=== PATIENT | female | born 1950 | race Caucasian/White ===

== ENCOUNTER 2016-05-18 06:15 | Day surgery (SDC) | payer OTHER ==
[2016-05-18] MEDS ORDERED: CELECOXIB 100 MG CAPSULE PO ONE (06:31)
[2016-05-18] MEDS ORDERED: miSOPROStol 200 MCG TABLET ONE (06:32)
[2016-05-18] MEDS ORDERED: LACTATED RINGERS 1,000 ML IV ONE ×3 (07:16→08:20)
[2016-05-18] MEDS ORDERED: MIDAZOLAM 2 MG/2 ML VIAL IVP ONE (07:43)
[2016-05-18] MEDS ORDERED: ONDANSETRON 4 MG/2 ML VIAL IVP ONE (07:43)
[2016-05-18] MEDS ORDERED: DEXAMETHASONE 4 MG/ML VIAL IVP ONE (07:43)
[2016-05-18] MEDS ORDERED: fentaNYL 100 MCG/2 ML VIAL IVP ONE (07:43)
[2016-05-18] MEDS ORDERED: PROPOFOL 200 MG/20 ML VIAL IVP ONE (07:43)
[2016-05-18] MEDS ORDERED: LIDOCAINE-PF 2% 10 ML AMP SUBQ ONE (07:43)
== END 2016-05-18 06:16 | disposition home or self-care (01) ==
PROC: 0UDB8ZX Extraction of Endometrium, Via Natural or Artificial Opening Endoscopic, Diagnostic (ICD-10-PCS; 2016-05-18)
PROC: 0UB98ZX Excision of Uterus, Via Natural or Artificial Opening Endoscopic, Diagnostic (ICD-10-PCS; principal; 2016-05-18 07:30)
DX: N95.0 Postmenopausal bleeding (principal); N84.0 Polyp of corpus uteri; E66.9 Obesity, unspecified; Z68.41 Body mass index [BMI] 40.0-44.9, adult; M19.90 Unspecified osteoarthritis, unspecified site; G89.29 Other chronic pain; M54.9 Dorsalgia, unspecified; G47.30 Sleep apnea, unspecified
CPT/HCPCS: 58558; A9270; J7120

== ENCOUNTER 2016-11-01 10:20 | Outpatient (CLI) | payer MEDICARE | END 2016-11-01 10:21 | disposition home or self-care (01) | DX: E78.00 Pure hypercholesterolemia, unspecified (principal) ==

== ENCOUNTER 2017-04-15 15:55 | Emergency (ER) | payer MEDICARE ==
[2017-04-15 16:07] VITALS: BP 165/70
[2017-04-15 16:32] LABS: BILIRUBIN,URINE NEGATIVE (NEGATIVE)
[2017-04-15 16:35] LABS: UA w/ MICROSCOPIC CHARGE YES
--- NOTE | 2017-04-15 16:39 | ED Physician Documentation ---
PD HPI FEMALE - Stated complaint Stated Complaint: FEMALE - Chief complaint Chief Complaint: UTI - History obtained from History obtained from: Patient - History of Present Illness Timing - onset: How many days ago (2) Timing - duration: Days (2) Timing - details: Abrupt onset, Still present Associated symptoms: Fever (today), Urinary frequency. No: Vaginal discharge, Dysuria Contributing factors: No: Exposed to STD Similar symptoms before: Diagnosis (UTIs and pyelonephritis.) Recently seen: Not recently seen Review of Systems Constitutional: reports: Fever, Chills, Myalgias Nose: denies: Rhinorrhea / runny nose, Congestion Throat: denies: Sore throat Respiratory: denies: Cough GI: reports: Nausea. denies: Abdominal Pain, Vomiting, Diarrhea : reports: Frequency. denies: Dysuria, Discharge Skin: denies: Rash, Lesions Musculoskeletal: reports: Back pain. 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 - Present Medications Home Medications: Ambulatory Orders Medication Instructions Recorded Confirmed Ascorbic Acid [Vitamin C] 1,000 mg PO DAILY 05/18/16 05/18/16 Cholecalciferol (Vitamin D3) 1,000 unit PO DAILY 05/18/16 05/18/16 [Vitamin D3] Sulfamethox/Trimeth 800/160 1 each PO BID #14 tablet 04/15/17 [Bactrim Ds 800/160] - Allergies Allergies/Adverse Reactions: Allergies Allergy/AdvReac Type Severity Reaction Status Date / Time nitrofurantoin Allergy Rash Verified 04/15/17 16:05 - Social History Does the pt smoke?: No Smoking Status: Never smoker Does the pt drink ETOH?: No Does the pt have substance abuse?: No - Immunizations Immunizations are current?: Yes - POLST Patient has POLST: No PD ED PE NORMAL - Vitals Vital signs reviewed: Yes - General General: Alert and oriented X 3, No acute distress, Well developed/nourished - HEENT HEENT: Moist mucous membranes, Pharynx benign - Neck Neck: Supple, no meningeal sign, No adenopathy - Cardiac Cardiac: RRR, No murmur - Respiratory Respiratory: Clear bilaterally - Abdomen Abdomen: Normal bowel sounds, Soft, Non tender, Non distended, No organomegaly - Female Female : Deferred - Rectal Rectal: Deferred - Back Back: No spinal TTP, Other (moderate right CVA tender to percussion.) - Derm Derm: Normal color, No rash Results - Vitals Vitals: Oxygen O2 Source Room air - Labs Labs: Microbiology 04/15/17 16:08 Urine Culture - Final Urine,Clean Catch Escherichia Coli Laboratory Tests 04/15/17 04/15/17 04/15/17 16:08 17:49 17:49 WBC 9.3 RBC 5.33 Hgb 15.5 Hct 46.1 MCV 86.5 MCH 29.1 MCHC 33.7 RDW 13.6 Plt Count 281 MPV 7.7 L Neut # 7.4 H Lymph # 1.2 L [place] # 0.6 Eos # 0.0 Baso # 0.0 Absolute Nucleated RBC 0.00 Nucleated RBC % 0.0 ESR 2 Sodium Potassium Chloride Carbon Dioxide Anion Gap BUN Creatinine Estimated GFR (MDRD) Glucose Calcium Total Bilirubin AST ALT Alkaline Phosphatase C-Reactive Protein Total Protein Albumin Globulin Albumin/Globulin Ratio Lipase Urine Color YELLOW Urine Clarity CLEAR Urine pH 6.0 Ur Specific [place] 1.015 Urine Protein NEGATIVE Urine Glucose (UA) NEGATIVE Urine Ketones TRACE Urine Occult Blood NEGATIVE Urine Nitrite NEGATIVE Urine Bilirubin NEGATIVE Urine Urobilinogen 0.2 (NORMAL) Ur Leukocyte Esterase TRACE H Urine RBC None Seen Urine WBC >25 H Ur Squamous Epith Cells MANY Squamous H Urine Bacteria Moderate H Ur Microscopic Review INDICATED Urine Culture Comments NOT INDICATED 04/15/17 17:49 WBC RBC Hgb Hct MCV MCH MCHC RDW Plt Count MPV Neut # Lymph # [place] # Eos # Baso # Absolute Nucleated RBC Nucleated RBC % ESR Sodium 138 Potassium 3.8 Chloride 96 L Carbon Dioxide 28 Anion Gap 14.0 H BUN 10 Creatinine 0.6 Estimated GFR (MDRD) 99 Glucose 103 H Calcium 9.4 Total Bilirubin 1.5 H AST 25 ALT 27 Alkaline Phosphatase 98 C-Reactive Protein 4.3 H Total Protein 8.1 Albumin 4.5 Globulin 3.6 Albumin/Globulin Ratio 1.3 Lipase 29 Urine Color Urine Clarity Urine pH Ur Specific [place] Urine Protein Urine Glucose (UA) Urine Ketones Urine Occult Blood Urine Nitrite Urine Bilirubin Urine Urobilinogen Ur Leukocyte Esterase Urine RBC Urine WBC Ur Squamous Epith Cells Urine Bacteria Ur Microscopic Review Urine Culture Comments PD MEDICAL DECISION MAKING - ED course Complexity details: reviewed results (WBC and ESR are normal. UA is moderately positive. Lab says culture not indicated but I ordered one in particular as the screen indicators are wrong about this one. ), considered differential (has back pain and fever with minimal UTI findings. However, CT normal, WBC and ESR are normal, no neuro symptoms and pain is really CVA area and not spine per se. ), d/w patient Departure - Departure Disposition: Home, Self Care Clinical Impression: Back pain Qualifiers: Back pain location: low back pain Chronicity: acute Back pain laterality: bilateral Sciatica presence: without sciatica Qualified Code(s): M54.5 - Low back pain Fever Qualifiers: Fever type: unspecified Qualified Code(s): R50.9 - Fever, unspecified Condition: Stable Record reviewed to determine appropriate education?: Yes Follow-Up: Adina Wise PA-C [Primary Care Provider] - Prescriptions: Sulfamethox/Trimeth 800/160 [Bactrim Ds 800/160] 1 each PO BID #14 tablet Comments: Your urine test does not signify an obvious infection, but does have some white cells that could suggest it. Your back pain and fever may be from other reason. However the CT scan, blood count, and other infection markers are good, so consider viral illness or such. Drink lots of fluids and use Tylenol every 4 hours as needed for fevers and pains. If urinary symptoms develop more convicingly, then add Bactrim antibiotic as prescribed. Recheck if other symptoms develop to suggest other cause (such as rash, diarrhea, cough, etc). Discharge Date/Time: 04/15/17 18:56
[2017-04-15 16:47] LABS: UR CULTURE IF IND NOT INDICATED; WBC,URINE >25 /HPF (0-5)
[2017-04-15] MEDS ORDERED: ACETAMINOPHEN 325 MG TABLET PO STA (17:45)
[2017-04-15 18:06] LABS: BASOPHILS % (AUTO) 0.5 %; EOSINOPHILS % (AUTO) 0.4 %; HCT - HEMATOCRIT 46.1 % (37.0-47.0); HGB - HEMOGLOBIN 15.5 g/dL (12.0-16.0); LYMPHOCYTES # (AUTO) 1.2 10^3/uL (1.5-3.5); MEAN CORPUSCULAR HEMOGLOBIN 29.1 pg (27.0-31.0); MEAN CORPUSCULAR HGB CONC 33.7 g/dL (32.0-36.0); MEAN CORPUSCULAR VOLUME 86.5 fL (81.0-99.0); MEAN PLATELET VOLUME 7.7 fL (7.9-10.8); MONOCYTES # (AUTO) 0.6 10^3/uL (0.0-1.0); MONOCYTES % (AUTO) 6.3 %; NEUTROPHILS # (AUTO) 7.4 10^3/uL (1.5-6.6); NEUTROPHILS % (AUTO) 79.8 %; RED BLOOD COUNT 5.33 10^6/uL (4.20-5.40); RED CELL DISTRIBUTION WIDTH 13.6 % (12.0-15.0); UNCORRECTED WHITE BLOOD COUNT 9.3 x10^3/uL; WHITE BLOOD COUNT 9.3 x10^3/uL (4.8-10.8)
--- NOTE | 2017-04-15 18:23 | CT Report ---
EXAM: CT ABDOMEN AND PELVIS (CT KUB) EXAM DATE: 04/15/2017 05:44 PM. CLINICAL HISTORY: Right flank pain. COMPARISONS: Contrast-enhanced CT abdomen/pelvis 09/06/2012. TECHNIQUE: Routine axial helical CT imaging was performed through the abdomen and pelvis without IV c ontrast. Reconstructions: Coronal and sagittal. In accordance with CT protocol optimization, one or more of the following dose reduction techniques w ere utilized for this exam: automated exposure control, adjustment of mA and/or KV based on patient s ize, or use of iterative reconstructive technique. FINDINGS: Lung Bases: Unremarkable. Right Kidney/Ureter: No stones, hydronephrosis, or hydroureter. No perinephric fat stranding. Left Kidney/Ureter: No stones, hydronephrosis, or hydroureter. No perinephric fat stranding. Other Solid Organs: The liver is enlarged, the right hepatic lobe measuring approximately 20 cm in le ngth. Diffuse low-attenuation of the hepatic parenchyma, indicating steatosis. Noncontrast images of the solid organs are otherwise grossly unremarkable. Gallbladder/Bile Ducts: Unremarkable. No visual stones or biliary ductal dilatation. Peritoneal Cavity: Laparoscopic adjustable gastric band in place, with port in the subcutaneous fat o f the left anterior abdominal wall. The bowel is grossly unremarkable, without evident focal wall thi ckening or adjacent mesenteric fat stranding to suggest acute inflammatory process, or evidence of brandie wel obstruction. The appendix is normal. No free fluid, pneumoperitoneum, or elizabeth adenopathy. Pelvic Organs: No bladder stones or wall thickening. Noncontrast images of the uterus and ovaries are unremarkable. Vasculature: Mild atherosclerotic calcifications within the aorta and iliac arteries. Bones: Moderate to severe facet arthropathy lower lumbar spine, with associated minimal anterolisthes is of L4 on L5. No acute bony abnormality. Other: Increased, moderate-sized fat-containing umbilical hernia, without evidence for inflammation. IMPRESSION: 1. No calculi or evidence of obstruction along the genitourinary tracts. Within the limits of noncont rast examination, no alternate acute process identified to explain right flank pain. 2. Enlarged, steatotic liver. 3. Interval increased size of fat-containing umbilical hernia. No CT evidence for inflammation. [facility] Referring Provider Line: [phone] SITE ID: [id number]
[2017-04-15 18:27] LABS: ALBUMIN/GLOBULIN RATIO 1.3 (1.0-2.2); BILIRUBIN,TOTAL 1.5 mg/dL (0.2-1.0); CALCIUM 9.4 mg/dL (8.5-10.3); CREATININE 0.6 mg/dL (0.4-1.0); POTASSIUM 3.8 mmol/L (3.5-5.0); TOTAL PROTEIN 8.1 g/dL (6.7-8.2)
== END 2017-04-15 18:56 | disposition home or self-care (01) ==
LOC: ED 15:55
DX: R50.9 Fever, unspecified (principal); M54.5 Low back pain; G47.30 Sleep apnea, unspecified
CPT/HCPCS: 36415; 74176; 80053; 81001; 83690; 85025; 85651; 86140; 87077; 87086; 87181; 99283; A9270; 81003

== ENCOUNTER 2017-11-02 10:00 | Outpatient (CLI) | payer MEDICARE | END 2017-11-02 10:01 | disposition home or self-care (01) | LOC: LAB.F 10:00 | PROVIDERS: ATTEND Internal Medicine | DX: N30.00 Acute cystitis without hematuria (principal) | CPT/HCPCS: 87086 ==

== ENCOUNTER 2018-05-03 09:56 | Outpatient (CLI) | payer MEDICARE ==
--- NOTE | 2018-05-04 10:12 | DEXA Report ---
Reason: ASYMPTOMATIC MENOPAUSAL STATE Procedure Date: 05/03/2018 Accession Number: [id number] / [id number] Procedure: DEX - Dexa Spine and/or Hip CPT Code: FULL RESULT: EXAM: Dexa Spine and/or Hip DATE: 05/03/2018 10:21 AM CLINICAL HISTORY: ASYMPTOMATIC MENOPAUSAL STATE TECHNIQUE: Dual energy x-ray absorptiometry (DXA) was performed on a [employer]. Regions measured are the AP Spine, femoral neck, and if needed forearm. COMPARISON: None. In accordance with the International Society for Clinical Densitometry (ISCD) guidelines, data from previous exams may be reanalyzed using current recommendations and techniques. This is done to allow a more accurate basis for comparison with the current study. FINDINGS: The data for the lumbar spine is as follows: BMD (g/cm/cm) T-SCORE Z-SCORE REGION L1 0.995 -1.1 0.0 L2 1.098 -0.8 0.3 L3 1.179 -0.2 1.0 L4 1.258 0.5 1.6 TOTAL 1.141 -0.3 0.8 NOTE: All evaluable vertebrae are used for classification The data for the hip is as follows: BMD (g/cm/cm) T-SCORE Z-SCORE REGION Neck 0.897 -1.0 0.3 TOTAL 0.868 -1.1 -0.1 NOTE: The femoral neck or total proximal femur, whichever is lowest, is used for classification. IMPRESSION: THE WHO CLASSIFICATION BASED ON THE INTERNATIONAL REFERENCE STANDARD IS OSTEOPENIA. THE FRACTURE RISK IS INCREASED. RECOMMENDATION: Patients with diagnosis of osteoporosis or osteopenia should have regular bone mineral density assessment. For those eligible for Medicare, routine testing is allowed once every 2 years. Testing frequency can be increased for patients who have rapidly progressing disease or for those who are receiving medical therapy to restore bone mass. COMMENT: World Health Organization (WHO) definitions for osteoporosis and osteopenia: NORMAL BMD: T-score at -1.0 or higher, fracture risk is low OSTEOPENIA BMD: T-score between -1.0 and -2.5, fracture risk is increased. OSTEOPOROSIS BMD: T-score at -2.5 or lower, fracture risk is high. National Osteoporosis Foundation recommends: 1. Obtain adequate dietary calcium (at least 1200 mg per day) and vitamin D (400-800 international units per day). 2. Participate, as appropriate, in regular weightbearing and muscle-strengthening exercise. 3. Avoid tobacco use and reduce alcohol and caffeine intake. 4. For more detailed information see the website at www.NOF.org.
== END 2018-05-03 09:57 | disposition home or self-care (01) ==
LOC: DI 09:56
PROVIDERS: ATTEND Internal Medicine
DX: M85.89 Other specified disorders of bone density and structure, multiple sites (principal); Z78.0 Asymptomatic menopausal state
CPT/HCPCS: 77080

== ENCOUNTER 2019-05-06 08:04 | Outpatient (CLI) | payer MEDICARE | END 2019-05-06 23:59 | disposition home or self-care (01) | LOC: LAB.R 08:04 | PROVIDERS: ATTEND Physician Assistant Medical | DX: N30.90 Cystitis, unspecified without hematuria (principal) | CPT/HCPCS: 87086 ==

== ENCOUNTER 2020-11-16 08:00 | Outpatient (CLI) | payer MEDICARE ==
[2020-11-16 15:14] LABS: BASOPHILS # (AUTO) 0.1 10^3/uL (0.0-0.1); BASOPHILS % (AUTO) 0.9 %; EOSINOPHILS # (AUTO) 0.1 10^3/uL (0.0-0.7); EOSINOPHILS % (AUTO) 2.3 %; HCT - HEMATOCRIT 47.7 % (37.0-47.0); HGB - HEMOGLOBIN 15.3 g/dL (12.0-16.0); LYMPHOCYTES # (AUTO) 1.6 10^3/uL (1.5-3.5); LYMPHOCYTES % (AUTO) 28.2 %; MEAN CORPUSCULAR HEMOGLOBIN 29.1 pg (27.0-31.0); MEAN CORPUSCULAR HGB CONC 32.1 g/dL (32.0-36.0); MEAN CORPUSCULAR VOLUME 90.9 fL (81.0-99.0); MEAN PLATELET VOLUME 10.3 fL (7.9-10.8); MONOCYTES # (AUTO) 0.4 10^3/uL (0.0-1.0); MONOCYTES % (AUTO) 7.3 %; NEUTROPHILS # (AUTO) 3.5 10^3/uL (1.5-6.6); NEUTROPHILS % (AUTO) 61.1 %; PLT - PLATELET COUNT 296 10^3/uL (130-450); RED BLOOD COUNT 5.25 10^6/uL (4.20-5.40); RED CELL DISTRIBUTION WIDTH 13.3 % (12.0-15.0); WHITE BLOOD COUNT 5.8 x10^3/uL (4.8-10.8)
[2020-11-16 15:57] LABS: ALBUMIN 4.2 g/dL (3.2-5.5); ALBUMIN/GLOBULIN RATIO 1.4 (1.0-2.2); ALKALINE PHOSPHATASE 79 IU/L (42-121); ALT ALANINE AMINOTRANSFERASE 22 IU/L (10-60); AST ASPARTATE AMINOTRANSFERASE 19 IU/L (10-42); BILIRUBIN,TOTAL 1.2 mg/dL (0.2-1.0); BUN - BLOOD UREA NITROGEN 18 mg/dL (6-20); CALCIUM 9.3 mg/dL (8.5-10.3); CARBON DIOXIDE - CO2 31 mmol/L (21-32); CHLORIDE 103 mmol/L (101-111); CHOLESTEROL 200 mg/dL; CREATININE 0.6 mg/dL (0.4-1.0); GFR - MDRD 99 (>89); GLUCOSE 92 mg/dL (70-100); HDL CHOLESTEROL 66 mg/dL; LDL CHOLESTEROL,CALCULATED 118 mg/dL; LDL/HDL RATIO 1.8 (<4.4); POTASSIUM 4.1 mmol/L (3.5-5.0); SODIUM 143 mmol/L (135-145); TOTAL PROTEIN 7.1 g/dL (6.7-8.2); TRIGLYCERIDES 78 mg/dL; VLDL CHOLESTEROL 16 mg/dL
[2020-11-16 16:07] LABS: FERRITIN 37.6 ng/mL (11.0-306.8)
== END 2020-11-16 08:01 | disposition home or self-care (01) ==
LOC: LAB.S 08:00
PROVIDERS: ATTEND Internal Medicine
DX: I10 Essential (primary) hypertension (principal); E78.00 Pure hypercholesterolemia, unspecified; Z93.4 Other artificial openings of gastrointestinal tract status
CPT/HCPCS: 36415; 80053; 80061; 82607; 82728; 83721; 85025

== ENCOUNTER 2020-12-13 08:00 | Outpatient (CLI) | payer MEDICARE ==
[2020-12-13 18:45] LABS: KETONES,URINE (UA) NEGATIVE (NEGATIVE)
[2020-12-13 18:46] LABS: CLARITY,URINE HAZY (CLEAR)
[2020-12-13 18:49] LABS: BILIRUBIN,URINE COLOR INTERFERENCE (NEGATIVE)
[2020-12-13 18:53] LABS: BACTERIA,URINE Few /HPF (None Seen); SQUAMOUS EPITHELIAL CELL,UR NONE SEEN (<= Few); WBC,URINE >25 /HPF (0-5)
== END 2020-12-13 23:59 | disposition home or self-care (01) ==
LOC: LAB.S 08:00
PROVIDERS: ATTEND Physician Assistant
DX: R39.9 Unspecified symptoms and signs involving the genitourinary system (principal)
CPT/HCPCS: 81001; 87086

== ENCOUNTER 2021-01-06 09:54 | Outpatient (CLI) | payer MEDICARE | END 2021-01-06 23:59 | disposition home or self-care (01) | LOC: LAB.S 09:54 | PROVIDERS: ATTEND Physician Assistant Medical | DX: R30.0 Dysuria (principal) | CPT/HCPCS: 87086 ==

== ENCOUNTER 2021-04-20 19:31 | Emergency (ER) | payer MEDICARE ==
--- NOTE | 2021-04-20 20:49 | ED Physician Documentation ---
History of Present Illness - Stated complaint Stated Complaint: GLF - Chief complaint Chief Complaint: Trauma Hd/Nk - History obtained from History obtained from: Patient, Family - History of Present Illness Timing: Today Pain level max: 4 Pain level now: 3 - Additonal information Additional information: Patient is a 70-year-old female who presents to the emergency department after a ground-level fall earlier today. She was walking down a driveway that was covered in snow and ice when she slipped and fell striking her head. No loss of consciousness but did have altered mental status after the event. Having slight pain in her head currently. No neck or back pain. No numbness or tingling. She states that she is having some discomfort on her sacrum. Review of Systems Constitutional: denies: Fever, Chills GI: denies: Vomiting, Diarrhea : denies: Dysuria Skin: denies: Rash Musculoskeletal: denies: Neck pain, Back pain Neurologic: reports: Headache. 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 - Present Medications Home Medications: Ambulatory Orders Medication Instructions Recorded Confirmed Ascorbic Acid [Vitamin C] 1,000 mg PO DAILY 05/18/16 05/18/16 Cholecalciferol (Vitamin D3) 1,000 unit PO DAILY 05/18/16 05/18/16 [Vitamin D3] Sulfamethox/Trimeth 800/160 1 each PO BID #14 tablet 04/15/17 [Bactrim Ds 800/160] - Allergies Allergies/Adverse Reactions: Allergies Allergy/AdvReac Type Severity Reaction Status Date / Time nitrofurantoin Allergy Rash Verified 04/15/17 16:05 - Social History Does the pt smoke?: No Smoking Status: Never smoker Does the pt drink ETOH?: No Does the pt have substance abuse?: No - Immunizations Immunizations are current?: Yes - POLST Patient has POLST: No PD ED PE NORMAL - Vitals Vital signs reviewed: Yes - General General: Alert and oriented X 3, No acute distress, Well developed/nourished - HEENT HEENT: Atraumatic, PERRL, Ears normal, Moist mucous membranes, Pharynx benign - Neck Neck: Supple, no meningeal sign, No bony TTP - Cardiac Cardiac: RRR, Strong equal pulses - Respiratory Respiratory: No respiratory distress, Clear bilaterally - Abdomen Abdomen: Soft, Non tender, Non distended - Back Back: No CVA TTP, No spinal TTP, Other (no C/T/L spine. no sacral tenderness. ) - Derm Derm: Warm and dry - Extremities Extremities: No deformity, Normal ROM s pain - Neuro Neuro: Alert and oriented X 3, didactic program in dietetics director 2-12 intact, No motor deficit, No sensory deficit, Normal speech Eye Opening: Spontaneous Motor: Obeys Commands Verbal: Oriented GCS Score: 15 - Psych Psych: Normal mood, Normal affect Results - Vitals Vitals: Vital Signs - 24 hr 04/20/21 04/20/21 04/20/21 19:35 20:28 21:09 Temperature 36.6 C Heart Rate 90 88 91 Respiratory 16 14 Rate Blood Pressure 179/83 H 143/82 H O2 Saturation 98 100 99 Oxygen O2 Source Room air - Rads (name of study) CT head Radiology: Final report received, EMP read contemporaneously, See rad report (no acute abnormalities) Ct cspine Radiology: Final report received, EMP read contemporaneously, See rad report (no acute abnormalities) PD MEDICAL DECISION MAKING - ED course Complexity details: reviewed results, re-evaluated patient, considered differential, d/w patient ED course: 70-year-old female status post ground-level fall. No acute findings on head CT or cervical spine CT. No neurological deficits. Declines an x-ray of the sacrum/coccyx. We will continue supportive care. We will have her follow-up with her doctor for further care. Patient counseled regarding signs and symptoms for which I believe and urgent re-evaluation would be necessary. Patient with good understanding of and agreement to plan and is comfortable going home at this time This document was made in part using voice recognition software. While efforts are made to proofread this document, sound alike and grammatical errors may occur. Departure - Departure Disposition: 01 Home, Self Care Clinical Impression: Thyroid nodule Closed head injury Qualifiers: Encounter type: initial encounter Qualified Code(s): S09.90XA - Unspecified injury of head, initial encounter Coccyx contusion Qualifiers: Encounter type: initial encounter Qualified Code(s): S30.0XXA - Contusion of lower back and pelvis, initial encounter Condition: Good Instructions: ED Contusion Sacrum Coccyx, ED Head Injury Closed Follow-Up: Edward Obrien MD [Primary Care Provider] - Within 1 week Comments: Please follow-up with your doctor for further care. Your head CT does not show any acute abnormalities today. Your cervical spine CT does show 2 thyroid nodules. It is recommended you have a thyroid ultrasound for characterization. This can be ordered by your doctor. You can use Tylenol as needed for pain at home. You do not need to wake her up. Return if she worsens including worsening headaches, vomiting or other changes. Thyroid nodules noted. 1.5 cm nodule in the right lobe and 1.4 cm nodule and left lobe. Recommend thyroid ultrasound. Discharge Date/Time: 04/20/21 21:10
--- NOTE | 2021-04-20 20:52 | CT Report ---
PROCEDURE: HEAD WO INDICATIONS: fall, head/neck injury TECHNIQUE: Noncontrast 4.5 mm thick angled axial sections acquired from the foramen magnum to the vertex. For r adiation dose reduction, the following was used: automated exposure control, adjustment of mA and/or kV according to patient size. COMPARISON: None FINDINGS: Image quality: Excellent. CSF spaces: Basal cisterns are patent. No extra-axial fluid collections. The ventricles are symmet hayley in size and shape. Brain: No intracranial bleeds or masses. There is cerebral volume loss for age, with resultant vent ricular and sulcal prominence. There are periventricular and deep white matter chronic small vessel ischemic changes. There is intracranial internal carotid artery atherosclerosis. Pituitary tissue fl attening into the inferior margin of the sella compatible with "empty sella". Skull and face: Calvarium and visualized facial bones appear intact, without suspicious lesions. Sinuses: Visualized sinuses and mastoids are clear. IMPRESSION: No acute intracranial disease process. Reviewed by: Kaylah Vallejo MD, PhD on 04/20/2021 8:51 PM PST Approved by: Kaylah Vallejo MD, PhD on 04/20/2021 8:51 PM PST Station ID: [id number]
--- NOTE | 2021-04-20 20:56 | CT Report ---
PROCEDURE: CERVICAL SPINE WO INDICATIONS: fall, head/neck injury TECHNIQUE: Noncontrast 3 mm thick sections acquired from the skull base to the T4 level. Sagittal and coronal r eformats were then constructed. For radiation dose reduction, the following was used: automated exp osure control, adjustment of mA and/or kV according to patient size. COMPARISON: None. FINDINGS: Image quality: Excellent. Bones: No fractures or dislocations. Visualized superior ribs are intact. Spine degenerative disc d isease and facet arthropathy are noted. Soft tissues: Prevertebral soft tissues are normal in thickness. No paravertebral hematomas. No ap ical pneumothoraces. Thyroid nodules noted. 1.5 cm nodule in the right lobe and 1.4 cm nodule and lef t lobe. IMPRESSION: 1. No fracture. No acute osseous lesion. If there is continued clinical concern for pathology, then M RI should be considered for further evaluation. 2. Thyroid nodules. Recommend thyroid ultrasound for definitive characterization when clinically feas ible. Reviewed by: Kaylah Vallejo MD, PhD on 04/20/2021 8:55 PM PST Approved by: Kaylah Vallejo MD, PhD on 04/20/2021 8:55 PM PST Station ID: [id number]
[2021-04-20 21:10] VITALS: BP 143/82
== END 2021-04-20 21:10 | disposition home or self-care (01) ==
LOC: ED 19:31
DX: S09.90XA Unspecified injury of head, initial encounter (principal); S30.0XXA Contusion of lower back and pelvis, initial encounter; W00.0XXA Fall on same level due to ice and snow, initial encounter; Y93.01 Activity, walking, marching and hiking; Y92.008 Other place in unspecified non-institutional (private) residence as the place of occurrence of the external cause; E04.2 Nontoxic multinodular goiter
CPT/HCPCS: 99283; 99284

== ENCOUNTER 2021-05-07 08:00 | Outpatient (CLI) | payer MEDICARE ==
[2021-05-07 19:41] LABS: FECAL OCCULT BLOOD (FIT) NEGATIVE (NEGATIVE)
== END 2021-05-07 23:59 | disposition home or self-care (01) ==
LOC: LAB.R 08:00
PROVIDERS: ATTEND Internal Medicine
DX: Z12.11 Encounter for screening for malignant neoplasm of colon (principal)
CPT/HCPCS: 82274

== ENCOUNTER 2021-05-13 08:48 | Outpatient (CLI) | payer MEDICARE ==
--- NOTE | 2021-05-13 19:13 | Ultrasound Report ---
PROCEDURE: Head or Neck Soft Tissue INDICATIONS: THYROID NODULE TECHNIQUE: Real-time scanning was performed of the thyroid gland, with image documentation. COMPARISON: None FINDINGS: Right: Thyroid lobe measures 5.2 x 2.0 x 2.0 cm, and is homogeneous in echotexture. Left: Thyroid lobe measures 4.7 x 2.0 x 1.7 cm, and is homogenous in echotexture. Isthmus: 5.1 mm thick. Nodule number: 1 Location: Right inferior Size: 0.5 x 1.2 x 1.0 cm. Composition: Solid Echogenicity: Isoechoic Shape: wider than tall. Margins: smooth Echogenic foci: Microcalcification Total points: 4 ACR TI-RADS category: TI-RADS 4 Nodule number: 2 Location: Right inferior Size: 1.0 x 0.9 x 0.9 cm. Composition: Solid Echogenicity: hypoechoic Shape: wider than tall. Margins: smooth Echogenic foci: None Total points: 4 ACR TI-RADS category: TI-RADS 4 Nodule number: 3 Location: Right mid Size: 0.7 x 0.5 x 0.7cm. Composition: solid Echogenicity: isoechoic Shape: wider than tall. Margins: smooth Echogenic foci: None Total points: 4 ACR TI-RADS category: TI-RADS 4 Nodule number: 4 Location: Left inferior Size: 1.7 x 1.7 x 1.3 cm. Composition: solid Echogenicity: isoechoic Shape: wider than tall. Margins: smooth Echogenic foci: Macrocalcifications Total points: 4 ACR TI-RADS category: TI-RADS 4 Nodule number: 5 Location: Left mid Size: 1.0 x 0.8 x 0.7cm. Composition: solid Echogenicity: Hypoechoic Shape: wider than tall. Margins: smooth Echogenic foci: None Total points: 4 ACR TI-RADS category: TI-RADS 4 Nodule number: 6 Location: Left mid Size: 0.6 x 0.4 x 0.6cm. Composition: solid Echogenicity: Hypoechoic Shape: wider than tall. Margins: smooth Echogenic foci: None Total points: 4 ACR TI-RADS category: TI-RADS 4 IMPRESSION: Multiple thyroid nodules as listed. Recommend ultrasound guided biopsy of nodule #4 and continued follow-up of other nodules. ACR TI-RADS definitions and recommendations: TI-RADS 1 (benign): 0 points. FNA not needed. TI-RADS 2 (not suspicious): 2 points. FNA not needed. TI-RADS 3 (mildly suspicious): 3 points. "FNA if 2.5 cm or larger, follow up if 1.5 cm or larger (at 1, 3, and 5 years). TI-RADS 4 (moderately suspicious): 4-6 points. "FNA if 1.5 cm or larger, follow up if 1 cm or larger (at 1, 2, 3, and 5 years). TI-RADS 5 (highly suspicious): 7 points or more. "FNA if 1 cm or larger, follow up if 0.5 cm or larger (every year for 5 years). Reviewed by: Chuy rFye MD on 05/13/2021 7:12 PM PST Approved by: Chuy Frye MD on 05/13/2021 7:12 PM PST Station ID: [id number]
== END 2021-05-13 08:49 | disposition home or self-care (01) ==
LOC: DI 08:48
PROVIDERS: ATTEND Internal Medicine
DX: E04.2 Nontoxic multinodular goiter (principal)

== ENCOUNTER 2021-06-22 11:49 | Outpatient (CLI) | payer MEDICARE ==
--- NOTE | 2021-06-22 14:28 | XRAY Report ---
PROCEDURE: Thoracic Spine 3 View INDICATIONS: XRAY TECHNIQUE: 3 views of the thoracic spine were acquired. COMPARISON: None. FINDINGS: Bones: No fractures or dislocations. No suspicious bony lesions. 12 pairs of ribs are noted, and a ppear intact where visualized. Soft tissues: No paravertebral stripe thickening. IMPRESSION: No evidence acute bony abnormality of the thoracic spine. If clinical suspicion and/or symptoms persist, further assessment with repeat plain films or advanced imaging (e.g., CT, MRI, or bone scan) may be helpful for further assessment. Reviewed by: Pritesh Hudson MD on 06/22/2021 2:27 PM PST Approved by: Pritesh Hudson MD on 06/22/2021 2:27 PM PST Station ID: [id number]
== END 2021-06-22 11:50 | disposition home or self-care (01) ==
LOC: DI.S 11:49
PROVIDERS: ATTEND Internal Medicine
DX: M54.6 Pain in thoracic spine (principal)

== ENCOUNTER 2021-08-10 08:00 | Outpatient (CLI) | payer MEDICARE ==
[2021-08-10 20:28] LABS: BILIRUBIN,URINE NEGATIVE (NEGATIVE); GLUCOSE, URINE (UA) NEGATIVE (NEGATIVE); KETONES,URINE (UA) TRACE mg/dL (NEGATIVE); LEUKOCYTE ESTERASE, URINE MODERATE (NEGATIVE); NITRITE,URINE NEGATIVE (NEGATIVE); OCCULT BLOOD,URINE TRACE-INTA (NEGATIVE); PH,URINE 5.5 PH (5.0-7.5); PROTEIN,URINE NEGATIVE (NEGATIVE); UROBILINOGEN,URINE 0.2 (NORMAL) E.U./dL (NORMAL)
[2021-08-10 20:35] LABS: CLARITY,URINE HAZY (CLEAR)
[2021-08-10 20:50] LABS: BACTERIA,URINE Rare /HPF (None Seen); RBC,URINE 0-5 /HPF (0-5); SQUAMOUS EPITHELIAL CELL,UR FEW Squamous (<= Few); WBC,URINE >25 /HPF (0-5)
== END 2021-08-10 08:01 | disposition home or self-care (01) ==
LOC: LAB 08:00
PROVIDERS: ATTEND Emergency Medicine
DX: R30.0 Dysuria (principal)
CPT/HCPCS: 81001; 87086

== ENCOUNTER 2021-11-24 08:44 | Outpatient (CLI) | payer MEDICARE ==
[2021-11-24 14:40] LABS: BASOPHILS % (AUTO) 0.7 %; EOSINOPHILS # (AUTO) 0.1 10^3/uL (0.0-0.7); EOSINOPHILS % (AUTO) 1.6 %; HCT - HEMATOCRIT 45.3 % (37.0-47.0); HGB - HEMOGLOBIN 14.5 g/dL (12.0-16.0); LYMPHOCYTES # (AUTO) 1.4 10^3/uL (1.5-3.5); MEAN CORPUSCULAR VOLUME 90.6 fL (81.0-99.0); MEAN PLATELET VOLUME 10.3 fL (7.9-10.8); MONOCYTES # (AUTO) 0.5 10^3/uL (0.0-1.0); MONOCYTES % (AUTO) 7.7 %; NEUTROPHILS # (AUTO) 4.1 10^3/uL (1.5-6.6); NEUTROPHILS % (AUTO) 66.8 %; PLT - PLATELET COUNT 300 10^3/uL (130-450); RED CELL DISTRIBUTION WIDTH 13.7 % (12.0-15.0); WHITE BLOOD COUNT 6.1 x10^3/uL (4.8-10.8)
[2021-11-24 15:27] LABS: ALBUMIN 3.8 g/dL (3.2-5.5); ALBUMIN/GLOBULIN RATIO 1.2 (1.0-2.2); ALKALINE PHOSPHATASE 73 IU/L (42-121); ALT ALANINE AMINOTRANSFERASE 21 IU/L (10-60); AST ASPARTATE AMINOTRANSFERASE 22 IU/L (10-42); BUN - BLOOD UREA NITROGEN 15 mg/dL (6-20); CALCIUM 9.2 mg/dL (8.5-10.3); CARBON DIOXIDE - CO2 32 mmol/L (21-32); CHLORIDE 100 mmol/L (101-111); CHOL/HDL RATIO 3.1 (<4.4); CHOLESTEROL 190 mg/dL; CREATININE 0.6 mg/dL (0.4-1.0); GFR - MDRD 98 (>89); GLUCOSE 90 mg/dL (70-100); HDL CHOLESTEROL 62 mg/dL; LDL CHOLESTEROL,CALCULATED 112 mg/dL; LDL/HDL RATIO 1.8 (<4.4); POTASSIUM 4.5 mmol/L (3.5-5.0); SODIUM 136 mmol/L (135-145); TOTAL PROTEIN 6.9 g/dL (6.7-8.2); TRIGLYCERIDES 78 mg/dL; VLDL CHOLESTEROL 16 mg/dL
== END 2021-11-24 08:45 | disposition home or self-care (01) ==
LOC: LAB.S 08:44
PROVIDERS: ATTEND Registered Nurse
DX: E78.00 Pure hypercholesterolemia, unspecified (principal); Z79.899 Other long term (current) drug therapy; Z13.29 Encounter for screening for other suspected endocrine disorder
CPT/HCPCS: 36415; 80053; 80061; 83721; 84443; 85025

== ENCOUNTER 2023-04-21 07:24 | Outpatient (CLI) | payer MEDICARE ==
--- NOTE | 2023-04-21 10:30 | XRAY Report ---
PROCEDURE: Calcaneus 2+V LT INDICATIONS: XRAY TECHNIQUE: Two views of the calcaneus were acquired. COMPARISON: None. FINDINGS: Bones: No fractures or dislocations. No suspicious bony lesions. Plantar and posterior calcaneal en thesophytes. Soft tissues: No suspicious calcifications. Achilles tendon appears normal. IMPRESSION: No acute bony abnormality. Plantar and posterior calcaneal osteophytes. Reviewed by: Panda Aldridge MD on 04/21/2023 10:29 AM [facility] Approved by: Panda Aldridge MD on 04/21/2023 10:29 AM [facility] Station ID: [id number]
[2023-04-21 14:45] LABS: BASOPHILS % (AUTO) 0.7 %; EOSINOPHILS # (AUTO) 0.1 10^3/uL (0.0-0.7); EOSINOPHILS % (AUTO) 2.4 %; HCT - HEMATOCRIT 47.6 % (37.0-47.0); HGB - HEMOGLOBIN 14.9 g/dL (12.0-16.0); LYMPHOCYTES # (AUTO) 2.2 10^3/uL (1.5-3.5); LYMPHOCYTES % (AUTO) 36.7 %; MEAN CORPUSCULAR HEMOGLOBIN 28.5 pg (27.0-31.0); MEAN CORPUSCULAR HGB CONC 31.3 g/dL (32.0-36.0); MEAN CORPUSCULAR VOLUME 91.2 fL (81.0-99.0); MEAN PLATELET VOLUME 10.2 fL (7.9-10.8); MONOCYTES # (AUTO) 0.4 10^3/uL (0.0-1.0); MONOCYTES % (AUTO) 6.8 %; NEUTROPHILS # (AUTO) 3.1 10^3/uL (1.5-6.6); NEUTROPHILS % (AUTO) 53.2 %; PLT - PLATELET COUNT 322 10^3/uL (130-450); RED BLOOD COUNT 5.22 10^6/uL (4.20-5.40); RED CELL DISTRIBUTION WIDTH 13.8 % (12.0-15.0); WHITE BLOOD COUNT 5.9 x10^3/uL (4.8-10.8)
[2023-04-21 15:45] LABS: ALBUMIN 4.1 g/dL (3.2-5.5); ALBUMIN/GLOBULIN RATIO 1.4 (1.0-2.2); ALKALINE PHOSPHATASE 79 IU/L (42-121); ALT ALANINE AMINOTRANSFERASE 21 IU/L (10-60); AST ASPARTATE AMINOTRANSFERASE 19 IU/L (10-42); BILIRUBIN,TOTAL 0.8 mg/dL (0.2-1.0); BUN - BLOOD UREA NITROGEN 16 mg/dL (6-20); CALCIUM 9.2 mg/dL (8.5-10.3); CARBON DIOXIDE - CO2 33 mmol/L (21-32); CHLORIDE 104 mmol/L (101-111); CHOL/HDL RATIO 2.8 (<4.4); CHOLESTEROL 198 mg/dL; CREATININE 0.6 mg/dL (0.6-1.3); GFR - MDRD 98 (>89); GLUCOSE 79 mg/dL (74-104); HDL CHOLESTEROL 70 mg/dL; LDL CHOLESTEROL,CALCULATED 107 mg/dL; LDL/HDL RATIO 1.5 (<4.4); POTASSIUM 3.9 mmol/L (3.5-4.5); SODIUM 141 mmol/L (135-145); TRIGLYCERIDES 105 mg/dL (48-352); VLDL CHOLESTEROL 21 mg/dL
[2023-04-21 16:18] LABS: THYROID STIMULATING HORMONE 3.58 uIU/mL (0.34-5.60)
== END 2023-04-21 07:25 | disposition home or self-care (01) ==
LOC: DI.S 07:24
PROVIDERS: ATTEND Internal Medicine
DX: M25.775 Osteophyte, left foot (principal); C73 Malignant neoplasm of thyroid gland; E78.00 Pure hypercholesterolemia, unspecified; E04.1 Nontoxic single thyroid nodule; I10 Essential (primary) hypertension; Z79.899 Other long term (current) drug therapy
CPT/HCPCS: 36415; 80053; 80061; 83721; 84439; 84443; 85025

== ENCOUNTER 2023-06-20 12:47 | Outpatient (CLI) | payer MEDICARE ==
--- NOTE | 2023-06-20 16:39 | MRI Report ---
PROCEDURE: Foot LT WO INDICATIONS: ENTHESOPATHY, ACHILLES TENDONITIS TECHNIQUE: Noncontrast sagittal T1 spin echo and T2 fast spin echo with fat saturation, long-axis T1 spin echo a nd T2 fast spin echo with fat saturation, short-axis proton density fast spin echo and T2 fast spin e cho with fat saturation through the forefoot. COMPARISON: None. FINDINGS: Image quality: Excellent. Bones and joints: Osteoarthritic changes are noted throughout midfoot and forefoot joints more notabl y involving first MTP joint, second through third TMT joints with joint space narrowing, subchondral sclerosis and marginal osteophyte formation. There is no acute left foot fracture or dislocation. No metatarsal stress fractures. No suspicious bony lesions. Soft tissues: Lisfranc ligament is mildly thickened concerning for ligament sprain. No full-thickness ligament rupture. The extensor and flexor tendons are normal in size and signal intensity. Distal pe roneus tendons are intact. No gross signal abnormality is seen within visualized plantar foot muscles . The included portion of plantar fascia is within normal limits. IMPRESSION: 1. Moderate midfoot and forefoot joint osteoarthritis most notably involving first MTP joint, second and third TMT joints. No fracture or dislocation. No metatarsal stress fractures. No suspicious bony lesions. 2. Low-grade sprain involving Lisfranc ligament. No ligament rupture. Extensor and flexor tendons are grossly intact. No soft tissue mass or drainable fluid collection. Reviewed by: Yazan Cannon MD on 06/20/2023 4:37 PM PST Approved by: Yazan Cannon MD on 06/20/2023 4:37 PM PST Station ID: [id number]
--- NOTE | 2023-06-20 16:58 | MRI Report ---
PROCEDURE: Ankle LT WO INDICATIONS: ENTHESOPATHY, ACHILLES TENDONITIS TECHNIQUE: Noncontrast sagittal T1 spin echo and T2 fast spin echo with fat saturation, axial proton density fas t spin echo and T2 fast spin echo with fat saturation, coronal T1 spin echo and T2 fast spin echo wit h fat saturation through the ankle/hindfoot. COMPARISON: Left calcaneal radiograph dated 04/21/2023. FINDINGS: Image quality: Excellent. Bones and joints: Osteoarthritic changes are noted throughout midfoot and hindfoot joints with joint space narrowing, subchondral sclerosis and marginal osteophyte formation more notably involving secon d and third TMT joints. No bone marrow contusions or fractures. No hindfoot coalitions. No osteoch ondral injuries of the talar dome. No pathologic joint effusions. Medial structures: The posterior tibialis, flexor digitorum longus, and flexor hallucis longus tendo ns are intact. Small amount of fluid distending tendon sheath of posterior tibialis tendon at the le davidson of distal talus and talonavicular joint is seen. The posterior tibial neurovascular bundle appear s normal within the tarsal tunnel, without extrinsic mass effect. The deltoid ligament and spring li gament are mildly thickened. Lateral structures: The anterior talofibular, calcaneofibular, and posterior talofibular ligaments a ppear thickened. More superiorly, the anterior and posterior tibiofibular ligaments appear normal, a s is the intermalleolar ligament. The tibiofibular syndesmosis is normal in width at 2 mm or less. The peroneus longus and brevis tendons demonstrate normal location and morphology. Adjacent bony per kay tubercle and retrotrochlear prominence are normal in size. The sinus tarsi demonstrates normal fatty signal, without edema, fibrosis, or cyst formation. Visualized sinus tarsi components (cervic al ligament, interosseous talocalcaneal ligament, roots of the inferior extensor retinaculum) appear normal. Anterior structures: The tibialis anterior, extensor hallucis longus, and extensor digitorum longus tendons appear intact. Posterior and plantar structures: Thickened distal Achilles tendon with intrasubstance T2 hyperintens e signal extending to its posterior calcaneal insertion is seen. There is also thickened medial band of plantar fascia near its plantar calcaneal insertion. No abductor digiti quinti muscle atrophy to s uggest Mccallum neuropathy. IMPRESSION: 1. Mild to moderate midfoot and hindfoot joint osteoarthritis. No fracture or dislocation. No gross o steochondral injuries of talar dome. 2. Low-grade tenosynovitis involving distal posterior tibialis tendon at the level of distal talus an d talar navicular joint. 3. Low-grade medial ankle ligament sprain. Low-grade sprain involving anterior and posterior talofibu lar ligaments and calcaneofibular ligament. No full-thickness ankle ligament rupture. 4. Moderate grade tendinosis and intrasubstance partial thickness tear involving distal Achilles tend on extending to its posterior calcaneal insertion. No Achilles tendon rupture. 5. Mildly thickened medial band of plantar fascia suggestive of low-grade plantar fasciitis. Reviewed by: Yazan Cannon MD on 06/20/2023 4:57 PM PST Approved by: Yazan Cannon MD on 06/20/2023 4:57 PM PST Station ID: [id number]
== END 2023-06-20 12:48 | disposition home or self-care (01) ==
LOC: DI 12:47
PROVIDERS: ATTEND Internal Medicine
DX: M19.072 Primary osteoarthritis, left ankle and foot (principal); S93.692A Other sprain of left foot, initial encounter; S93.492A Sprain of other ligament of left ankle, initial encounter; S93.412A Sprain of calcaneofibular ligament of left ankle, initial encounter; S86.012A Strain of left Achilles tendon, initial encounter

== ENCOUNTER 2023-08-04 10:11 | Outpatient (CLI) | payer MEDICARE ==
--- NOTE | 2023-08-04 14:30 | XRAY Report ---
PROCEDURE: Knee 3V RT INDICATIONS: RIGHT KNEE PAIN TECHNIQUE: 3 views of the knee(s) were acquired. COMPARISON: None. FINDINGS: Bones: No fractures or dislocations. No suspicious bony lesions. Moderate to severe tricompartmen pedro arthritic change most severe laterally as well as the patellofemoral compartment. Periarticular o steophytes are present. Minimal subchondral sclerosis without erosions. Mild lateral patellar subluxa tion. Soft tissues: Mild knee joint effusion. No suspicious soft tissue calcifications or masses. IMPRESSION: Moderate to severe tricompartmental arthritic change. Reviewed by: Matilda Lee MD on 08/04/2023 2:28 PM PDT Approved by: Matilda Lee MD on 08/04/2023 2:28 PM PDT Station ID: [id number]
== END 2023-08-04 10:12 | disposition home or self-care (01) ==
LOC: DI.S 10:11
PROVIDERS: ATTEND Internal Medicine
DX: M17.11 Unilateral primary osteoarthritis, right knee (principal)

== ENCOUNTER 2023-10-05 10:18 | Day surgery (SDC) | payer MEDICARE ==
[2023-10-05] MEDS: LACTATED RINGERS 1,000 ML IV ONE (10:29)
--- NOTE | 2023-10-05 10:51 | ANESTHESIA ---
Pre-Anesthesia VS, & Labs - Diagnosis Screening - Procedure Colonoscopy Vital Signs: Temp Pulse Resp BP Pulse Ox O2 Flow Rate 36.3 C L 80 16 163/69 H 99 10/05/23 10:34 10/05/23 10:34 10/05/23 10:34 10/05/23 10:34 10/05/23 10:34 Height: 5 ft 2 in Weight (kg): 90.5 kg Body Mass Index: 36.5 BMI Classification: Obese - Is Patient ?: No Home Medications and Allergies Home Medications: Ambulatory Orders Levothyroxine Sodium [Synthroid] 25 mcg PO DAILY 10/04/23 Lisinopril [Zestril] 10 mg PO DAILY 10/04/23 Omeprazole 20 mg PO BID 10/04/23 Ascorbic Acid [Vitamin C] 1,000 mg PO DAILY 05/18/16 Cholecalciferol (Vitamin D3) [Vitamin D3] 1,000 unit PO DAILY 05/18/16 Levothyroxine Sodium [Synthroid] 25 mcg PO DAILY 10/04/23 Lisinopril [Zestril] 10 mg PO DAILY 10/04/23 Omeprazole 20 mg PO BID 10/04/23 Allergies/Adverse Reactions: Allergies Allergy/AdvReac Type Severity Reaction Status Date / Time nitrofurantoin Allergy Rash Verified 10/04/23 14:04 bandaide AdvReac Mild Rash Uncoded 10/04/23 14:15 Anes History & Medical History - Anesthetic History Family history of Anesthesia Complications: Denies Family history of Malignant Hyperthermia: Denies - Medical History Cardiovascular: reports: Hypertension Pulmonary: reports: Sleep apnea, CPAP use Gastrointestinal: reports: GERD, Other Urinary: reports: None Musculoskeletal: reports: None Endocrine/Autoimmune: reports: HyPOthyroidism Skin: reports: Rosacea Smoking Status: Never smoker - Surgical History General: reports: Gastric surgery Gynecologic: reports: Tubal ligation Exam General: Alert, Oriented x3, Cooperative Dental: WNL Mouth Openin Fingerbreadth Mallampati classification: II Thyromental Distance: 4-6 cm Respiratory: Lungs clear Plan Anesthesia Type: MAC Consent for Procedure(s) Verified and Reviewed: Yes Code Status: Attempt Resuscitation ASA classification: 2-Mild systemic disease Is this case an emergency?: No
[2023-10-05] MEDS ORDERED: LIDOCAINE-MPF 2% 5 ML VIAL ONE (11:16)
[2023-10-05] MEDS ORDERED: PROPOFOL 200 MG/20 ML VIAL IVP ONE ×2 (11:16→11:49)
[2023-10-05] MEDS ORDERED: ONDANSETRON 4 MG/2 ML VIAL ONE (11:34)
[2023-10-05] MEDS: LACTATED RINGERS 300 ML IV ONE (12:08)
--- NOTE | 2023-10-05 12:30 | ANESTHESIA POST OP EVALUATION ---
Anesthesia Post Eval - Post Anesthesia Eval Vitals: Last Vital Signs Temp 36.6 C 10/05/23 12:25 Pulse 82 10/05/23 12:25 Resp 16 10/05/23 12:25 BP 113/72 10/05/23 12:25 Pulse Ox 99 10/05/23 12:25 O2 Flow Rate CV Function Including HR & BP: Stable Pain Control: Satisfactory Nausea & Vomiting: Negative Mental Status: Baseline Respiratory Status: Airway Patent Hydration Status: Satisfactory Anesthesia Complications: None
[2023-10-05 13:00] VITALS: BP 120/70; O2SAT 100
== END 2023-10-05 10:19 | disposition home or self-care (01) ==
LOC: SDS 10:18
PROVIDERS: ATTEND Surgery
PROC: 0DBP8ZX Excision of Rectum, Via Natural or Artificial Opening Endoscopic, Diagnostic (ICD-10-PCS; 2023-10-05)
PROC: 0DBF8ZX Excision of Right Large Intestine, Via Natural or Artificial Opening Endoscopic, Diagnostic (ICD-10-PCS; 2023-10-05)
PROC: 0DBG8ZX Excision of Left Large Intestine, Via Natural or Artificial Opening Endoscopic, Diagnostic (ICD-10-PCS; principal; 2023-10-05 12:00)
DX: Z12.11 Encounter for screening for malignant neoplasm of colon (principal); K57.30 Diverticulosis of large intestine without perforation or abscess without bleeding; E66.9 Obesity, unspecified; Z68.36 Body mass index [BMI] 36.0-36.9, adult; I10 Essential (primary) hypertension; G47.33 Obstructive sleep apnea (adult) (pediatric)
CPT/HCPCS: 45380; J7120